=== PATIENT | female | born 1970 | race Hispanic/Latino ===

== ENCOUNTER 2021-02-14 14:47 | Emergency (ER) | payer SELFPAY ==
[2021-02-14] MEDS ORDERED: KETOROLAC TROMETHAMINE 30 MG/ML VIAL IM STA (15:39)
[2021-02-14] MEDS ORDERED: HYDROXYZINE HCL 25 MG TAB PO STA (15:39)
[2021-02-14] MEDS ORDERED: NAPROXEN250 MG PO (15:50)
[2021-02-14] MEDS ORDERED: HYDROXYZINE HCL25 MG PO (15:51)
== END 2021-02-14 17:38 | disposition home or self-care (01) ==
LOC: ER 16:06
DX: M54.6 Pain in thoracic spine (principal); R06.02 Shortness of breath; M54.2 Cervicalgia; R51.9 Headache, unspecified; E03.9 Hypothyroidism, unspecified
CPT/HCPCS: 71046; 99283; J1885; J3410; U0002